=== PATIENT | female | born 1990 | race Caucasian/White ===

== ENCOUNTER 2019-09-04 22:30 | Emergency (ER) | payer BC, OTHER ==
[~2019-09-04] VITALS: Ht 160 cm; Wt 68.0 kg
[2019-09-04 22:33] VITALS: BP 95/58
[2019-09-04] MEDS ORDERED: DIPH,PERTUSS(ACELL),TET VAC/PF 0.5 ML IM-VACC ONE ×2 (23:00→23:07)
[2019-09-04] MEDS ORDERED: LIDOCAINE 2%, 20ML SQ ONE (23:00)
[2019-09-04] MEDS ORDERED: LIDOCAINE-MPF 2% ,5ML ONE (23:10)
[2019-09-04] MEDS ORDERED: NEOSPORIN OINT. PKT 1 PACKET ONE (23:44)
== END 2019-09-05 | disposition home or self-care (01) ==
LOC: ED 23:30
DX: S91.012A Laceration without foreign body, left ankle, initial encounter (principal); W22.8XXA Striking against or struck by other objects, initial encounter; Y93.89 Activity, other specified; Y92.69 Other specified industrial and construction area as the place of occurrence of the external cause; Y99.0 Civilian activity done for income or pay
CPT/HCPCS: 12001; 90471; 90715; 99283; J3490